=== PATIENT | female | born 1985 | race Caucasian/White ===

== ENCOUNTER 2018-03-11 18:00 | Emergency (ER) | payer OTHER ==
[~2018-03-11] VITALS: Ht 162.6 cm; Wt 118.4 kg
[~2018-03-11 18:00] MED LIST: AMBIEN 10MG10 MG PO; AMITRIPTYLINE H75 M1 PO; ATIVAN 1MG T1 MG/TAB PO; CARAFATE 1GM1 G PO; CIPRO 500MG TA500 MG PO; CIPRO500 MG PO; DHEA25 MG PO; DONNATAL TABLET1 TAB PO; FISH OIL1000 MG PO; FLAGYL500 MG PO; GINKO BILOBA120 MG PO; HYDROCHLOR50 MG PO; L-ARGININE500 MG PO; LORTAB 5/500 501 TAB PO; METRONIDAZOLE500 MG PO; NAPROSYN375 MG PO; NAPROSYN500 MG PO; NORCO 325 MG-51 TAB PO; NORCO 325 MG-7.1 TAB PO; NUVARING; NUVARING1 ICR VG; PERCOCET 325 MG1 TA2 PO; PHENERGAN 25 TA25 MG PO; PHENERGAN25 MG RC; PHENERGAN50 MG/SUPP RC; PREDNISONE20 MG PO; PRENATAL VITAMI1 TA5 PO; PRILOTC PO; PROBIOTICA100 Milli1 PO; PROVENTIL0.09 MG/A1 IH; RANITIDINE HYD300 MG PO; TYLENOL W/COD1 UDTAB PO; VITAMIN B12100 MCG PO; WELLBUTRIN SR150 M1 PO; ZOFRAN 4MG T4 MG/TAB PO; ZOFRAN ODT4 MG PO; [UNRECOGNIZED DRUG - REMARK]
[2018-03-11 18:04] VITALS: TEMP 99.3
[2018-03-11 19:16] VITALS: BP 185/122
[2018-03-11] MEDS ORDERED: CELEXA 20MG20 MG/TAB PO (19:18)
[2018-03-11] MEDS ORDERED: ZYPREXA 5MG5 MG PO (19:18)
[2018-03-11] MEDS ORDERED: DESYREL 50MG50 MG PO (19:19)
[2018-03-11] MEDS ORDERED: XYZAL5 MG PO (19:22)
[2018-03-11] MEDS ORDERED: SINGULAIR 110 MG/TAB PO (19:22)
[2018-03-11 19:34] VITALS: PULSE 88
== END 2018-03-11 19:35 | disposition home or self-care (01) ==
LOC: COL.ER 18:00
DX: F32.9 Major depressive disorder, single episode, unspecified (principal)

== ENCOUNTER 2018-05-16 01:31 | Emergency (ER) | payer OTHER ==
[~2018-05-16] VITALS: Ht 162.6 cm; Wt 120.2 kg
[~2018-05-16 01:31] MED LIST changes: +CELEXA 20MG20 MG/TAB PO; +DESYREL 50MG50 MG PO; +SINGULAIR 110 MG/TAB PO; +XYZAL5 MG PO; +ZYPREXA 5MG5 MG PO
[2018-05-16 01:40] VITALS: BP 149/80; TEMP 98.2
[2018-05-16 02:27] LABS: BASO % 0.3 % (0.0-2.0); EOS # 0.1 (0.0-0.7); EOS % 1.1 % (0-4.0); GRAN # 7.4 (1.4-6.5); GRAN % 58.5 % (42.2-75.2); HEMATOCRIT 36.4 % (37.0-47.0); HEMOGLOBIN 12.3 g/dl (12.5-16.0); LYMPH # 4.2 (1.2-3.4); LYMPH % 33.4 % (20.0-51.0); MEAN CELL VOLUME 82 fl (80.0-100.0); MEAN CORPUSCULAR HEMOGLOBIN 28 pg (27.0-31.0); MEAN CORPUSCULAR HGB CONC 34 g/dl (33.0-37.0); MEAN PLATELET VOLUME 11.5 fl (7.4-10.4); MONO # 0.8 (0.1-0.6); MONO % 6.4 % (1.7-9.3); PLATELET COUNT 266 K/mm3 (130-400); RED BLOOD COUNT 4.43 M/mm3 (4.10-5.30); REDCELL DISTRIBUTION WIDTH-CV 12.5 % (11.5-14.5)
[2018-05-16 02:37] LABS: ALBUMIN 3.9 gm/dL (3.5-5.0); BILIRUBIN,TOTAL 0.3 mg/dL (0.0-1.0); CALCIUM 8.9 mg/dL (8.4-10.2); CREATININE, serum 0.61 mg/dL (0.52-1.25); POTASSIUM 3.3 mmol/L (3.4-5.0); TOTAL PROTEIN 7.4 gm/dL (6.4-8.2)
[2018-05-16] MEDS ORDERED: THE MEDICINE S200 M2 PO (03:05)
[2018-05-16] MEDS ORDERED: OMEGA-3 1000 MG1 CAP PO (03:06)
[2018-05-16] MEDS ORDERED: VITAMIN D31000 I1 PO (03:07)
[2018-05-16] MEDS ORDERED: VIIBRYD20 MG PO (03:08)
[2018-05-16 03:58] LABS: COLLECTION METHOD CLEAN CATCH
[2018-05-16 04:03] LABS: MUCOUS Present /lpf; PH 5 (5-8); SQUAMOUS EPITHELIAL 0-2 /hpf; URINE APPEARANCE Clear; URINE BACTERIA None Seen /hpf; URINE BILIRUBIN Negative (NEGATIVE); URINE BLOOD 1+ (NEGATIVE); URINE COLOR Yellow; URINE GLUCOSE Negative (NEGATIVE); URINE KETONE Negative (NEGATIVE); URINE LEUKOCYTE ESTERASE Negative (NEGATIVE); URINE NITRATE Negative (NEGATIVE); URINE PROTEIN(semi-quant) Negative (NEGATIVE)
[2018-05-16 04:36] VITALS: PULSE 88
== END 2018-05-16 04:36 | disposition home or self-care (01) ==
LOC: COL.ER 01:31
PROVIDERS: Physician Assistant
DX: R55 Syncope and collapse (principal); E87.6 Hypokalemia; R52 Pain, unspecified; R19.7 Diarrhea, unspecified; E86.0 Dehydration; F41.9 Anxiety disorder, unspecified
CPT/HCPCS: J2060; J2405; J7030

== ENCOUNTER 2018-07-04 09:29 | Inpatient (IN) | payer OTHER ==
[~2018-07-04] VITALS: Ht 162.6 cm; Wt 127.2 kg
[~2018-07-04 09:29] MED LIST changes: +NUVARING VAG RING VG; -NUVARING1 ICR VG; +OMEGA-3 1000 MG1 CAP PO; +PRENATAL VITAMI1 T12 PO; -PRENATAL VITAMI1 TA5 PO; +THE MEDICINE S200 M2 PO; +VIIBRYD20 MG PO; +VITAMIN D31000 I1 PO
[2018-07-04 12:20] LABS: BASO % 0.3 % (0.0-2.0); EOS % 0.3 % (0-4.0); GRAN % 71.8 % (42.2-75.2); HEMOGLOBIN 11.4 g/dl (12.5-16.0); LYMPH # 2.2 (1.2-3.4); LYMPH % 22.6 % (20.0-51.0); MEAN CELL VOLUME 82 fl (80.0-100.0); MEAN CORPUSCULAR HEMOGLOBIN 28 pg (27.0-31.0); MEAN CORPUSCULAR HGB CONC 33 g/dl (33.0-37.0); MEAN PLATELET VOLUME 11.5 fl (7.4-10.4); MONO # 0.5 (0.1-0.6); MONO % 4.8 % (1.7-9.3); PLATELET COUNT 226 K/mm3 (130-400); RED BLOOD COUNT 4.15 M/mm3 (4.10-5.30); REDCELL DISTRIBUTION WIDTH-CV 12.7 % (11.5-14.5)
[2018-07-04 12:23] LABS: HEMATOCRIT 34.1 % (37.0-47.0)
[2018-07-04 12:31] LABS: CALCIUM 7.9 mg/dL (8.4-10.2); CREATININE, serum 0.51 mg/dL (0.52-1.25); POTASSIUM 3.3 mmol/L (3.4-5.0)
[2018-07-04] MEDS ORDERED: BUSPAR DIVIDOSE15 MG PO (12:38)
[2018-07-04] MEDS ORDERED: NORVASC 5MG5 MG/TAB PO (12:39)
[2018-07-04 12:48] VITALS: BP 125/69; PULSE 72; TEMP 97.9
[2018-07-04 13:45] VITALS: BP 128/67; PULSE 62
[2018-07-04 15:58] VITALS: BP 151/89; PULSE 90; TEMP 99.2
[2018-07-04 16:00] VITALS: BP 128/62; PULSE 64
[2018-07-04 19:38] VITALS: BP 117/73; PULSE 98; TEMP 99
[2018-07-04 23:56] VITALS: BP 130/72; PULSE 86; TEMP 98.3
[2018-07-05] VITALS (13 sets, daily range): BP systolic 123–145; BP diastolic 70–87; PULSE 89–109; TEMP 98.1–98.5
[2018-07-06 04:00] VITALS: BP 110/49; PULSE 79; TEMP 98.7
[2018-07-06] MEDS ORDERED: ASPI325T6 PO (07:34)
[2018-07-06] MEDS ORDERED: OXAYDO5 MG PO (07:35)
[2018-07-06 08:36] VITALS: BP 133/75; PULSE 100; TEMP 99
== END 2018-07-06 12:05 | disposition home or self-care (01) | DRG 494 ==
LOC: SURG 09:29
PROVIDERS: Orthopaedic Surgery
PROC: 0QHH36Z Insertion of Intramedullary Internal Fixation Device into Left Tibia, Percutaneous Approach (ICD-10-PCS; 2018-07-05)
PROC: 0QSHXZZ Reposition Left Tibia, External Approach (ICD-10-PCS; 2018-07-05)
PROC: 0QHH34Z Insertion of Internal Fixation Device into Left Tibia, Percutaneous Approach (ICD-10-PCS; principal; 2018-07-05 12:30)
DX: S82.872A Displaced pilon fracture of left tibia, initial encounter for closed fracture (principal); W01.0XXA Fall on same level from slipping, tripping and stumbling without subsequent striking against object, initial encounter; I10 Essential (primary) hypertension; Z87.891 Personal history of nicotine dependence
CPT/HCPCS: A9284; C1713; C1776; G0378; G8978-GP; G8979-GP; J0690; J1100; J1170; J1885; J2250; J2270; J2405; J2550; J2704; J2795; J3010; J7042; J7120

== ENCOUNTER → 2018-12-29 | Outpatient (CLI) | payer BC ==
[~2018-12-29] MED LIST changes: +ASPI325T6 PO; +BUSPAR DIVIDOSE15 MG PO; +NORVASC 5MG5 MG/TAB PO; +OXAYDO5 MG PO
== END ==
LOC: MC.RAD 09:30
DX: N60.02 Solitary cyst of left breast (principal); N64.4 Mastodynia; Z80.3 Family history of malignant neoplasm of breast

== ENCOUNTER 2019-10-07 03:02 | Emergency (ER) | payer BC ==
[~2019-10-07] VITALS: Ht 165.1 cm; Wt 122.7 kg
[2019-10-07] MEDS ORDERED: BRINTELLIX10 (03:19)
[2019-10-07] MEDS ORDERED: FLONASE SENSIM9.9 ML NS (03:36)
[2019-10-07] MEDS ORDERED: ALBUTEROL SULFAT3 M3 IH (03:36)
[2019-10-07 04:02] LABS: COLLECTION METHOD CLEAN CATCH
[2019-10-07 04:07] LABS: PH 5 (5-8); SQUAMOUS EPITHELIAL None Seen /hpf; URINE APPEARANCE Clear; URINE BACTERIA None Seen /hpf; URINE BILIRUBIN Negative (NEGATIVE); URINE BLOOD 1+ (NEGATIVE); URINE COLOR Yellow; URINE GLUCOSE Negative (NEGATIVE); URINE KETONE Negative (NEGATIVE); URINE LEUKOCYTE ESTERASE Negative (NEGATIVE); URINE NITRATE Negative (NEGATIVE); URINE PROTEIN(semi-quant) Negative (NEGATIVE); URINE UROBILINOGEN Negative (NEGATIVE)
[2019-10-07] MEDS ORDERED: OMNICEF 300MG300 MG PO (05:36)
[2019-10-07] MEDS ORDERED: NUVESSA1.3% VG (05:36)
[2019-10-07 06:00] VITALS: BP 120/80; PULSE 87; TEMP 98.1
== END 2019-10-07 06:02 | disposition home or self-care (01) ==
LOC: COL.ER 03:02
PROVIDERS: Emergency Medicine
DX: N76.0 Acute vaginitis (principal); H66.92 Otitis media, unspecified, left ear; F43.10 Post-traumatic stress disorder, unspecified; B96.89 Other specified bacterial agents as the cause of diseases classified elsewhere; F41.9 Anxiety disorder, unspecified; Z79.51 Long term (current) use of inhaled steroids
CPT/HCPCS: J0696; J8540

== ENCOUNTER 2019-11-19 18:13 | Emergency (ER) | payer BC ==
[~2019-11-19] VITALS: Ht 162.6 cm; Wt 126.4 kg
[~2019-11-19 18:13] MED LIST changes: +ALBUTEROL SULFAT3 M3 IH; +BRINTELLIX10; +FLONASE SENSIM9.9 ML NS; +NUVESSA1.3% VG; +OMNICEF 300MG300 MG PO
[2019-11-19 18:25] VITALS: BP 165/95; TEMP 98.9
[2019-11-19 18:58] LABS: COLLECTION METHOD CLEAN CATCH
[2019-11-19 19:06] LABS: MUCOUS Present /lpf; PH 5 (5-8); SQUAMOUS EPITHELIAL 0-2 /hpf; URINE APPEARANCE Clear; URINE BACTERIA None Seen /hpf; URINE BILIRUBIN Negative (NEGATIVE); URINE BLOOD 1+ (NEGATIVE); URINE COLOR Yellow; URINE GLUCOSE Negative (NEGATIVE); URINE KETONE Negative (NEGATIVE); URINE LEUKOCYTE ESTERASE Negative (NEGATIVE); URINE NITRATE Negative (NEGATIVE); URINE PROTEIN(semi-quant) Negative (NEGATIVE); URINE RBC 0-2 /hpf; URINE UROBILINOGEN Negative (NEGATIVE)
[2019-11-19 19:18] LABS: BASO % 0.3 % (0.0-2.0); EOS # 0.1 (0.0-0.7); GRAN # 7.1 (1.4-6.5); HEMATOCRIT 43.8 % (37.0-47.0); HEMOGLOBIN 14.5 g/dl (12.5-16.0); LYMPH # 3.9 (1.2-3.4); LYMPH % 32.7 % (20.0-51.0); MEAN CELL VOLUME 84 fl (80.0-100.0); MEAN CORPUSCULAR HEMOGLOBIN 28 pg (27.0-31.0); MEAN CORPUSCULAR HGB CONC 33 g/dl (33.0-37.0); MEAN PLATELET VOLUME 10.9 fl (7.4-10.4); MONO # 0.8 (0.1-0.6); MONO % 6.6 % (1.7-9.3); PLATELET COUNT 348 K/mm3 (130-400); RED BLOOD COUNT 5.23 M/mm3 (4.10-5.30); REDCELL DISTRIBUTION WIDTH-CV 12.5 % (11.5-14.5)
[2019-11-19 19:34] LABS: ALBUMIN 4.7 gm/dL (3.5-5.0); BILIRUBIN,TOTAL 0.3 mg/dL (0.0-1.0); C-REACTIVE PROTEIN 1.1 mg/dL (0.0-0.9); CALCIUM 9.3 mg/dL (8.4-10.2); CREATININE, serum 0.54 (0.52-1.25); POTASSIUM 4.3 mmol/L (3.4-5.0); TOTAL PROTEIN 8.6 gm/dL (6.4-8.2)
[2019-11-19] MEDS ORDERED: FLAGYL500 MG PO (20:36)
[2019-11-19] MEDS ORDERED: DOXYCYCLINE HY100 MG PO (20:36)
[2019-11-19 21:15] VITALS: PULSE 971
== END 2019-11-19 21:15 | disposition home or self-care (01) ==
LOC: COL.ER 18:13
PROVIDERS: Physician Assistant
DX: N73.9 Female pelvic inflammatory disease, unspecified (principal); K21.9 Gastro-esophageal reflux disease without esophagitis; Z79.51 Long term (current) use of inhaled steroids
CPT/HCPCS: J0696; J1885; J2405; J7030; Q9967

== ENCOUNTER 2020-11-07 20:50 | Emergency (ER) | payer BC ==
[~2020-11-07] VITALS: Ht 165.1 cm; Wt 109.1 kg
[~2020-11-07 20:50] MED LIST changes: +DOXYCYCLINE HY100 MG PO
[2020-11-07 20:58] VITALS: TEMP 98.2
[2020-11-07 22:11] LABS: BASO # 0.1 (0.0-0.2); BASO % 0.3 % (0.0-2.0); EOS # 0.1 (0.0-0.7); EOS % 0.8 % (0-4.0); GRAN # 9.5 (1.4-6.5); GRAN % 65.5 % (42.2-75.2); HEMATOCRIT 42.4 % (37.0-47.0); HEMOGLOBIN 14.1 g/dl (12.5-16.0); LYMPH # 4.1 (1.2-3.4); LYMPH % 27.9 % (20.0-51.0); MEAN CELL VOLUME 85 fl (80.0-100.0); MEAN CORPUSCULAR HEMOGLOBIN 28 pg (27.0-31.0); MEAN CORPUSCULAR HGB CONC 33 g/dl (33.0-37.0); MONO # 0.8 (0.1-0.6); MONO % 5.2 % (1.7-9.3); PLATELET COUNT 338 K/mm3 (130-400); RED BLOOD COUNT 5.02 M/mm3 (4.10-5.30); REDCELL DISTRIBUTION WIDTH-CV 12.6 % (11.5-14.5)
[2020-11-07 22:17] LABS: ALANINE AMINOTRANSFERASE 33 U/L (4-34); ALBUMIN 4.5 gm/dL (3.5-5.0); ALKALINE PHOSPHATASE 65 U/L (50-136); ANION GAP 10 mmol/L (7-16); AST,SGOT 28 U/L (15-37); BILIRUBIN,TOTAL 0.5 mg/dL (0.0-1.0); BLOOD UREA NITROGEN 9 mg/dL (7-17); CALCIUM 9.4 mg/dL (8.4-10.2); CARBON DIOXIDE 25 mmol/L (22-30); CHLORIDE 101 mmol/L (98-107); CREATININE, serum 0.57 (0.52-1.25); GLUCOSE 122 mg/dL (74-106); LIPASE 47 U/L (23-300); POTASSIUM 3.7 mmol/L (3.4-5.0); SODIUM 136 mmol/L (137-145)
[2020-11-07 22:31] LABS: TROPONIN-I < 0.012 ng/mL (0.000-0.035)
[2020-11-08] MEDS ORDERED: PROTONIX 40MG T40 MG PO (01:37)
[2020-11-08 01:56] VITALS: BP 159/91; PULSE 89
== END 2020-11-08 01:56 | disposition home or self-care (01) ==
LOC: COL.ER 20:50
PROVIDERS: Emergency Medicine
DX: D72.829 Elevated white blood cell count, unspecified (principal); G89.29 Other chronic pain; R10.9 Unspecified abdominal pain; J45.909 Unspecified asthma, uncomplicated; R07.9 Chest pain, unspecified; F41.9 Anxiety disorder, unspecified; F32.9 Major depressive disorder, single episode, unspecified; Z88.8 Allergy status to other drugs, medicaments and biological substances
CPT/HCPCS: J1885; Q9967

== ENCOUNTER → 2020-11-16 | Outpatient (CLI) | payer BC ==
[~2020-11-16] MED LIST changes: +PROTONIX 40MG T40 MG PO
== END ==
LOC: COL.RAD 07:51
DX: K76.0 Fatty (change of) liver, not elsewhere classified (principal)

== ENCOUNTER → 2020-11-21 | Outpatient (CLI) | payer BC | LOC: COL.RAD 09:40 | DX: R10.11 Right upper quadrant pain (principal) | CPT/HCPCS: A9537; J2805 ==